=== PATIENT | male | born 1990 | race Caucasian/White ===

== ENCOUNTER 2020-05-03 20:26 | Emergency (ER) | payer OTHER ==
[~2020-05-03] VITALS: Ht 188 cm; Wt 68.0 kg
[~2020-05-03 20:26] MED LIST: CLIN300 PO; GABA600; HYDACE5 PO; METH10; OXYACE5T PO; RXOXYACE PO; SERT100
[2020-05-03] MEDS ORDERED: Amphetamine Sal15 MG PO (20:34)
[2020-05-03] MEDS ORDERED: Prednisone20 MG PO (20:37)
== END 2020-05-03 20:41 | disposition home or self-care (01) ==
LOC: ER 20:26
DX: L23.7 Allergic contact dermatitis due to plants, except food (principal); Z87.891 Personal history of nicotine dependence
CPT/HCPCS: 99283; J7512

== ENCOUNTER 2021-01-11 05:25 | Emergency (ER) | payer OTHER ==
[~2021-01-11] VITALS: Ht 188 cm; Wt 65.8 kg
[~2021-01-11 05:25] MED LIST changes: +Amphetamine Sal15 MG PO; +BENZ100A PO; +Prednisone20 MG PO
== END 2021-01-11 06:22 | disposition home or self-care (01) ==
LOC: ER 05:25
DX: L23.7 Allergic contact dermatitis due to plants, except food (principal); F17.290 Nicotine dependence, other tobacco product, uncomplicated
CPT/HCPCS: 96372; 99283-25; J3301

== ENCOUNTER 2021-03-02 01:24 | Emergency (ER) | payer OTHER | END 2021-03-02 02:30 | disposition left against medical advice (07) | LOC: ER 01:24 | DX: Z53.21 Procedure and treatment not carried out due to patient leaving prior to being seen by health care provider (principal) ==